=== PATIENT | male | born 1950 | race Asian ===

== ENCOUNTER 2017-05-27 13:15 | Outpatient (RCR) | payer OTHER | END 2017-06-05 | disposition home or self-care (01) | LOC: PTY 13:15 | DX: M77.51 Other enthesopathy of right foot and ankle (principal); M79.671 Pain in right foot ==

== ENCOUNTER 2017-06-08 09:40 | Outpatient (RCR) | payer OTHER | END 2017-07-05 | disposition home or self-care (01) | LOC: PTY 09:40 | DX: M77.51 Other enthesopathy of right foot and ankle (principal); M79.671 Pain in right foot ==